=== PATIENT | female | born 1960 | race Caucasian/White ===

== ENCOUNTER 2024-04-01 06:23 | Day surgery (SDC) | payer OTHER, SELFPAY ==
[2024-04-01 07:38] VITALS: BMI 30.3
[2024-04-01 07:57] VITALS: BP 115/45
[2024-04-01 08:18] VITALS: BMI 30.3
[2024-04-01 08:37] VITALS: BMI 20.9
[2024-04-01 08:42] VITALS: BMI 20.9
[2024-04-01 09:23] VITALS: BP 144/124
[2024-04-01 09:26] VITALS: BP 103/57
[2024-04-01 09:30] VITALS: BP 102/52
== END 2024-04-01 09:50 | disposition home or self-care (01) ==
LOC: GI 06:23
PROVIDERS: ATTENDING PHYSICIAN Internal Medicine Gastroenterology
DX: Z12.11 Encounter for screening for malignant neoplasm of colon (principal); K62.89 Other specified diseases of anus and rectum; K64.0 First degree hemorrhoids; Z86.010 Personal history of colon polyps
CPT/HCPCS: 45331; 88305

== ENCOUNTER → 2024-07-10 07:59 | Outpatient (REF) | payer OTHER, SELFPAY | LOC: RAD 07:59 | PROVIDERS: ATTENDING PHYSICIAN Internal Medicine Geriatric Medicine | DX: Z00.00 Encounter for general adult medical examination without abnormal findings (principal) | CPT/HCPCS: 75571 ==

== ENCOUNTER → 2024-08-22 07:50 | Outpatient (REF) | payer OTHER, SELFPAY | LOC: WDC 07:50 | PROVIDERS: ATTENDING PHYSICIAN Internal Medicine Geriatric Medicine | DX: Z00.00 Encounter for general adult medical examination without abnormal findings (principal); Z12.31 Encounter for screening mammogram for malignant neoplasm of breast | CPT/HCPCS: 77063; 77067 ==

== ENCOUNTER 2025-06-25 06:17 | Day surgery (SDC) | payer OTHER, SELFPAY | END 2025-06-25 10:59 | disposition home or self-care (01) | LOC: GI 06:17 | PROVIDERS: ATTENDING PHYSICIAN Internal Medicine | DX: K62.1 Rectal polyp (principal); Z98.890 Other specified postprocedural states | CPT/HCPCS: 45330 ==

== ENCOUNTER → 2025-07-16 14:14 | Outpatient (REF) | payer OTHER, SELFPAY | LOC: RAD 14:14 | PROVIDERS: ATTENDING PHYSICIAN Internal Medicine Geriatric Medicine | DX: Z78.0 Asymptomatic menopausal state (principal); Z00.00 Encounter for general adult medical examination without abnormal findings | CPT/HCPCS: 77080 ==

== ENCOUNTER → 2025-10-13 12:49 | Outpatient (REF) | payer OTHER, SELFPAY | LOC: WDC 12:49 | PROVIDERS: ATTENDING PHYSICIAN Internal Medicine Geriatric Medicine | DX: Z12.31 Encounter for screening mammogram for malignant neoplasm of breast (principal) | CPT/HCPCS: 77063; 77067 ==